=== PATIENT | male | born 1955 | race Hispanic/Latino ===

== ENCOUNTER → 2022-04-19 | Outpatient (CLI) | payer MEDICARE ==
[~2022-04-19] MED LIST: IOPAMIDOL 370 MG/ML 100 ML INFUS..BTL INJ ONE; SODIUM CHLORIDE 0.9% 250ML 250 ML ONE
[2022-04-19 10:12] LABS: CREATININE, SERUM 0.9 mg/dL (0.72-1.25)
== END ==
LOC: CT 09:17
PROVIDERS: ATTEND Urology
DX: R31.0 Gross hematuria (principal)
CPT/HCPCS: 36415; 74178; 82565; 84520; J7050; Q9967